=== PATIENT | male | born 1990 | race African-American/Black ===

== ENCOUNTER 2018-01-20 18:13 | Emergency (ER) | payer OTHER ==
[~2018-01-20] VITALS: Ht 180.3 cm; Wt 83.2 kg
[~2018-01-20 18:13] MED LIST: AMOXICILLIN500 MG PO; AMOXIL500 MG OR; NAPROSYN375 MG PO
[2018-01-20 18:46] LABS: URINE BILIRUBIN - DIPSTICK NEGATIVE (NEGATIVE); URINE BLOOD DIPSTICK LARGE (NEGATIVE); URINE COLOR YELLOW; URINE GLUCOSE - DIPSTICK NEGATIVE (NEGATIVE); URINE KETONE NEGATIVE (NEGATIVE); URINE LEUK ESTERASE NEGATIVE (NEGATIVE); URINE NITRITE - DIPSTICK NEGATIVE (Negative); URINE PROTEIN - DIPSTICK NEGATIVE (NEG-TRACE); URINE SPECIFIC GRAVITY 1.025
[2018-01-20 19:16] LABS: URINE CLARITY CLEAR
[2018-01-20 19:29] LABS: URINE RBC TNTC RBC/hpf (0-5); URINE SQUAMOUS EPITHELIAL CELL FEW EPI/hpf (0-FEW)
[2018-01-20] MEDS ORDERED: DOXYCYCL HYC100 MG PO ×2 (19:51→19:57)
[2018-01-20 19:55] VITALS: BP 136/85
== END 2018-01-20 20:00 | disposition home or self-care (01) ==
LOC: ED 18:13
PROVIDERS: Family Medicine
DX: R31.9 Hematuria, unspecified (principal)